=== PATIENT | male | born 1985 | race Hispanic/Latino ===

== ENCOUNTER 2016-07-06 17:05 | Emergency (ER) | payer OTHER ==
[~2016-07-06] VITALS: Ht 177.8 cm; Wt 124.7 kg
[~2016-07-06 17:05] MED LIST: ALBUTEROL0.09 MG/A1 INH; AMOXICILLIN/CLA1 TA2 PO; AMOXICILLIN875 M1 PO; AMOXIL500 MG PO; AUGMENTIN 875 M1 TAB PO; BLM PO; CYCLOBENZAPRINE10 M1 PO; FLEXERIL10 MG PO; IBUPROFEN800 MG PO; MEDROL DOSEPAK1 PAC PO; MEDROL4 M2 PO; NAPROXEN500 M2 PO; NOVAPLUS V0.09 MG/Ac INH; PREDNISONE 20MG20 MG PO; PREDNISONE20 M1 PO; PREDNISONE50 MG PO; PROAIR HFA0.09 MG/Ac INH; PROAIR HFA8.5 GM INH; PROVENTIL0.09 MG/A1 PO; TESSALON PERLE100 M1 PO; TESSALON PERLE100 MG PO; TYLENOL #31 TAB PO; ULTRAM(MONOGRAP50 MG PO; VICODIN5-300 PO; ZITHROMAX Z-PA250 M1 PO; ZITHROMAX250 M2 PO
--- NOTE | 2016-07-06 18:20 | ED INFLUENZA/URI COMPLAINT ---
History of Present Illness General Chief Complaint: General Adult Stated Complaint: SORE THROAT Source: patient Exam Limitations: no limitations Vital Signs & Intake/Output Vital Signs & Intake/Output Vital Signs Date Time Temp Pulse Resp B/P Pulse O2 O2 Flow FiO2 Ox Delivery Rate 07/06 1934 80 18 140/90 94 Room Air 07/06 1818 Room Air 07/06 1716 97.0 82 16 142/94 96 Room Air Allergies Coded Allergies: NO KNOWN ALLERGIES (03/03/16) Reconcile Medications Albuterol Sulfate (Proair Hfa) 8.5 GM HFA.AER.AD 2 PUF INH Q4-6 PRN PRN wheezing Albuterol Sulfate (Ventolin Hfa) 90 MCG HFA.AER.AD 2 PUF INH Q4-6 PRN PRN WHEEZING Azithromycin (Zithromax) 500 MG TABLET 1 TAB PO DAILY BRONCHITIS Benzonatate (Tessalon Perle) 100 MG CAPSULE 1 CAP PO TID PRN COUGH Methylprednisolone. (Medrol) 4 MG TAB.DS.PK 1 DP PO AD INFLAMMATION 6 on day 1 then reduce by one tablet daily until gone Robitussin AC (Guaifenesin-Codeine Syrup) 200 MG-20 MG/10 ML LIQUID 10 ML PO TID PRN COUGH Triage Note: PT STATES HE HAS BEEN SICK FOR A WEEK WITH A HEAD COLD AND HE HAS A SORETHROAT TODAY AND STATES HE HAS DIARRHEA NOW SINCE THIS AM. PT STATES HE HAS SOB BUT IT ISN'T HELPING HIM Triage Nurses Notes Reviewed? yes Onset: Gradual Duration: constant Timing: recent history Severity: severe Severity Numbers: 7 Prior Episodes/Possible Cause: occassional episodes HPI: Patient is a 31-year-old male with a past medical history of asthma who smokes marijuana every day who presents to emergency room with concerns of a one-week history of nonproductive cough intermittent wheezing mild sore throat and today patient had mild nausea and head congestion and generalized weakness and fatigue tactile fevers. Denies any similar sick contacts. Denies any neck pain neck stiffness headache chest pain shortness of breath arm pain jaw pain or abdominal pain (DAMIAN SPICER) Past History Travel History Traveled to [place] past 21 day No Medical History Any Pertinent Medical History? see below for history Neurological: NONE EENT: NONE Cardiovascular: NONE Respiratory: asthma Gastrointestinal: diverticulitis Hepatic: NONE Renal: NONE Musculoskeletal: NONE Psychiatric: NONE Endocrine: NONE Blood Disorders: NONE Cancer(s): NONE DIAGNOSTIC CARDIAC SONOGRAPHER/Reproductive: NONE History of MRSA: No History of VRE: No History of CDIFF: No Tetanus Vaccine: 08/19/12 Surgical History Surgical History: non-contributory, N Psychosocial History Who do you live with Family Services at Home None What is your primary language Romanian Tobacco Use: Never used ETOH Use: occasional use Illicit Drug Use: marijuana Family History Family History, If Any: MOTHER Relation not specified for: FH: diabetes in Hx Contributory? No (DAMIAN SPICER) Review of Systems Review of Systems Constitutional: Reports: see HPI. EENTM: Reports: see HPI. Respiratory: Reports: see HPI, cough. Cardiovascular: Reports: no symptoms. GI: Reports: no symptoms. Genitourinary: Reports: see HPI. Musculoskeletal: Reports: no symptoms. Skin: Reports: no symptoms. Neurological/Psychological: Reports: no symptoms. Hematologic/Endocrine: Reports: no symptoms. Immunologic/Allergic: Reports: no symptoms. All Other Systems: Reviewed and Negative (DAMIAN SPICER) Physical Exam Physical Exam General Appearance: no apparent distress, alert, comfortable Ears, Nose, Throat: moist mucous membrane, hearing grossly normal Comments: Well-developed well-nourished person in no acute distress HEENT: Normal EENT exam, extraocular motion intact, no nystagmus. Pupils equally round and reactive to light and accommodation. Nose is atraumatic. External auditory canal and Tympanic membranes clear. Pharynx normal. No swelling or edema. Neck: Supple, no lymphadenopathy, normal range of motion without pain or tenderness Back: Nontender, no CVA tenderness. Cardiovascular: Regular rate and rhythms no murmurs rubs or gallops, normal JVP Respiratory: Bilateral wheezing noted no respiratory distress Abdomen: Soft, nontender nondistended, no appreciable organomegaly. Normal bowel sounds. No ascites Extremity: No edema, no calf tenderness to palpation, normal and equal pulses. Neuro: Alert oriented x3, motor sensory normal, Skin: No appreciable rash on exposed skin, skin is warm and dry. Psych: Mood and affect is normal, memory and judgment is normal. Core Measures Severe Sepsis Present: No Septic Shock Present: No (DAMIAN SPICER) Progress Differential Diagnosis: influenza, meningitis, neutropenia, otitis, pneumonia, pharyngitis, sinusitis, DIVERTICULITIS, ASTHMA EXACERBATION, BRONCHITIS Plan of Care: Orders Procedure Date/time Status THROAT CULTURE W/QUICK STREP 07/06 1745 Active RAPID VIRAL INFLUENZA A 07/06 1720 Complete Patient was given 2 nebulizer treatments and had improvement of wheezing. Patient was walked down the hallway noted to be 94-95% room air no respiratory distress. Due to history of present illness and exam findings patient will be treated for concerns of bronchitis and asthma exacerbation. Patient was strongly advised to discontinue smoking and will follow discharge instructions and had no questions. Initial strep was negative however cultures pending (DAMIAN SPICER) Initial ED EKG: none (DAMIAN SPICER) Departure Departure Disposition: HOME OR SELF CARE Condition: Stable Clinical Impression Primary Impression: Upper respiratory infection Secondary Impressions: Asthma attack Referrals: PATIENT HAS NO PRIMARY CARE DR (PCP/Family) Additional Instructions: As discussed please discontinue smoking. Begin the prescription azithromycin for the full course. Begin THE PRESCRIPTION OF TESSALON PERLES and Robitussin with codeine for cough. Begin the prescription Medrol Dosepak tomorrow as YOU HAVE received prednisone in the emergency room today. If symptoms worsen return to emergency. If no better in 2 days follow-up with your primary care doctor. Prescriptions waiting at [facility] pharmacy Departure Forms: Customer Survey General Discharge Information Prescriptions: Current Visit Scripts Albuterol Sulfate (Ventolin Hfa) 2 PUF INH Q4-6 PRN PRN WHEEZING #1 INHAL Benzonatate (Tessalon Perle) 1 CAP PO TID PRN COUGH #21 CAP Robitussin AC (Guaifenesin-Codeine Syrup) 10 ML PO TID PRN COUGH #100 Azithromycin (Zithromax) 1 TAB PO DAILY #5 TAB Methylprednisolone. (Medrol) 1 DP PO AD #1 DP 6 on day 1 then reduce by one tablet daily until gone (DAMIAN SPICER) PA/TRAIN DIRECTOR Co-Sign Statement Statement: ED Attending supervision documentation- [] I saw and evaluated the patient. I have also reviewed all the pertinent lab results and diagnostic results. I agree with the findings and the plan of care as documented in the PA's/TRAIN DIRECTOR's documentation. X I have reviewed the ED Record and agree with the PA's/TRAIN DIRECTOR's documentation. [] Additions or exceptions (if any) to the PAs/TRAIN DIRECTOR's note and plan are summarized below: [] (MONISHA RUIZ,DEB)
[2016-07-06] MEDS ORDERED: GUAIFENESIN-COD10 ML PO (19:19)
[2016-07-06] MEDS ORDERED: ZITHROMAX500 M2 PO (19:19)
[2016-07-06] MEDS ORDERED: MEDROL4 M2 PO (19:19)
[2016-07-06] MEDS ORDERED: VENTOLIN HFA18 GM INH (19:19)
[2016-07-06] MEDS ORDERED: TESSALON PERLE100 M1 PO (19:19)
[2016-07-06 19:34] VITALS: BP 140/90
== END 2016-07-06 19:35 ==
LOC: ERH 17:05
DX: J06.9 Acute upper respiratory infection, unspecified (principal); J45.909 Unspecified asthma, uncomplicated
CPT/HCPCS: 1263; 87804; 87804-59; J3101

== ENCOUNTER 2016-10-09 09:05 | Emergency (ER) | payer OTHER ==
[~2016-10-09] VITALS: Ht 177.8 cm; Wt 127.0 kg
[~2016-10-09 09:05] MED LIST changes: +GUAIFENESIN-COD10 ML PO; +VENTOLIN HFA18 GM INH; +ZITHROMAX500 M2 PO
[2016-10-09 09:07] VITALS: BP 168/102
--- NOTE | 2016-10-09 09:16 | ED EAR COMPLAINT ---
History of Present Illness General Chief Complaint: Ear Complaints Stated Complaint: EAR PAIN Source: patient, old records Exam Limitations: no limitations Vital Signs & Intake/Output Vital Signs & Intake/Output Vital Signs Date Time Temp Pulse Resp B/P B/P Pulse O2 O2 Flow FiO2 Mean Ox Delivery Rate 10/09 0907 96.0 90 16 168/102 99 Room Air Allergies Coded Allergies: NO KNOWN ALLERGIES (03/03/16) Reconcile Medications Albuterol Sulfate (Proair Hfa) 8.5 GM HFA.AER.AD 2 PUF INH Q4-6 PRN PRN wheezing Albuterol Sulfate (Ventolin Hfa) 90 MCG HFA.AER.AD 2 PUF INH Q4-6 PRN PRN WHEEZING Azithromycin (Zithromax) 500 MG TABLET 1 TAB PO DAILY BRONCHITIS Benzonatate (Tessalon Perle) 100 MG CAPSULE 1 CAP PO TID PRN COUGH Ciprofloxacin HCl/Dexameth (Ciprodex Otic Suspension) 0.3 %-0.1 % DROPS.SUSP 4 GTT OT BID otitis externa use for 7 days Methylprednisolone. (Medrol) 4 MG TAB.DS.PK 1 DP PO AD INFLAMMATION 6 on day 1 then reduce by one tablet daily until gone Robitussin AC (Guaifenesin-Codeine Syrup) 200 MG-20 MG/10 ML LIQUID 10 ML PO TID PRN COUGH Triage Note: 31 Y/O MALE C/O "SORENESS" TO L EAR X 2 DAYS Triage Nurses Notes Reviewed? yes HPI: Patient is a 31-year-old male presents complaining of left ear discomfort. Symptoms 2 days. Itching and mild aching sensation to the left ear. Patient has been taking Tylenol with mild improvement. Associated nasal congestion and mild cough. Patient denies fevers, chills, dyspnea, discharge from his ear. Past History Travel History Traveled to [place] past 21 day No Medical History Any Pertinent Medical History? see below for history Neurological: NONE EENT: NONE Cardiovascular: NONE Respiratory: asthma Gastrointestinal: diverticulitis Hepatic: NONE Renal: NONE Musculoskeletal: NONE Psychiatric: NONE Endocrine: NONE Blood Disorders: NONE Cancer(s): NONE BLACK TOP ROLLER/Reproductive: NONE History of MRSA: No History of VRE: No History of CDIFF: No Tetanus Vaccine: 08/19/12 Surgical History Surgical History: non-contributory, N Psychosocial History Who do you live with Family Services at Home None What is your primary language Kazakh Tobacco Use: Quit >30 days ago Family History Family History, If Any: MOTHER Relation not specified for: FH: diabetes in Hx Contributory? No Review of Systems Review of Systems Constitutional: Denies: chills, fever. EENTM: Reports: see HPI, ear pain. Denies: throat pain. Respiratory: Reports: cough. Denies: short of breath. Cardiovascular: Denies: chest pain. GI: Denies: abdominal pain. Musculoskeletal: Reports: no symptoms. Skin: Reports: no symptoms. Neurological/Psychological: Reports: no symptoms. Hematologic/Endocrine: Reports: no symptoms. Immunologic/Allergic: Reports: no symptoms. Physical Exam Physical Exam General Appearance: well developed/nourished, alert, awake, obese Head: atraumatic, normal appearance Eyes: Bilateral: normal appearance. Ears: Left: swelling (mild left eac). Right: canal normal, Tympanic normal. Nose: normal inspection Mouth/Throat: normal mouth inspection, pharynx normal Neck: normal inspection, supple, full range of motion Cardiovascular/Respiratory: normal breath sounds, normal peripheral pulses, regular rate/rhythm Back: normal inspection, normal range of motion Neurologic/Psych: no motor/sensory deficits, awake, alert, oriented x 3, normal gait, normal mood/affect Skin: intact, normal color, warm/dry Progress Differential Diagnoses I considered the following diagnoses in my evaluation of the patient: Otitis media, otitis externa, cerumen impaction, mastoiditis, viral upper respiratory infection, environmental allergies Plan of Care: Patient nontoxic appearing. Appears stable for discharge. Initial ED EKG: none Departure Departure Time of Disposition: 935 Disposition: HOME OR SELF CARE Condition: Stable Clinical Impression Primary Impression: Left otitis externa Qualifiers: Otitis externa type: unspecified type Chronicity: acute Qualified Code: H60.502 - Unspecified acute noninfective otitis externa, left ear Secondary Impressions: Elevated blood pressure reading Referrals: PATIENT HAS NO PRIMARY CARE DR (PCP/Family) DEEPTI RESENDEZ MD Additional Instructions: Return to the emergency department if difficulty breathing or worsening of symptoms. Her blood pressure was elevated in the emergency department. Contact one of the [facility] primary care providers to establish a primary doctor for further evaluation. Departure Forms: Customer Survey General Discharge Information Prescriptions: Current Visit Scripts Ciprofloxacin HCl/Dexameth (Ciprodex Otic Suspension) 4 GTT OT BID #1 BOT use for 7 days
[2016-10-09] MEDS ORDERED: CIPRODEX OTIC7.5 ML OT (09:38)
== END 2016-10-09 09:41 ==
LOC: ERH 09:05
DX: H60.92 Unspecified otitis externa, left ear (principal); R03.0 Elevated blood-pressure reading, without diagnosis of hypertension

== ENCOUNTER 2017-06-17 23:01 | Emergency (ER) | payer OTHER ==
[~2017-06-17] VITALS: Ht 177.8 cm; Wt 127.0 kg
[~2017-06-17 23:01] MED LIST changes: +AUGMENTIN 500-1 EACH PO; +CHERATUSSIN AC118 M1 PO; +CIPRODEX OTIC7.5 ML OT; +PREDNISONE50 M1 PO; +PROVENTIL HFA6.7 GM INH
--- NOTE | 2017-06-18 01:22 | ED INFLUENZA/URI COMPLAINT ---
History of Present Illness General Chief Complaint: General Adult Stated Complaint: "IM SICK" Source: patient, old records Exam Limitations: no limitations Vital Signs & Intake/Output Vital Signs & Intake/Output Vital Signs Date Time Temp Pulse Resp B/P B/P Pulse O2 O2 Flow FiO2 Mean Ox Delivery Rate 06/18 0207 97.8 73 18 152/64 97 Room Air 06/18 0206 97 Room Air 06/18 0120 96 06/18 0048 98.2 99 20 157/87 97 Room Air 06/17 2319 98.1 96 18 168/101 97 Room Air ED Intake and Output 06/18 0000 06/17 1200 Intake Total Output Total Balance Patient 280 lb Weight Weight Reported by Patient Measurement Method Allergies Coded Allergies: NO KNOWN ALLERGIES (03/03/16) Reconcile Medications Albuterol Sulfate (Proventil Hfa) 90 MCG HFA.AER.AD 2 PUF INH Q4 PRN cough/ wheezing Albuterol Sulfate (Proair Hfa) 90 MCG HFA.AER.AD 2 PUF INH Q4-6 PRN PRN bronchospasm Azithromycin (Zithromax) 250 MG TABLET 1 DP PO AD bronchitis 2 the first day followed by 1 for days 2-5 Ibuprofen 600 MG TABLET 1 TAB PO Q6PRN PRN pain with food Oseltamivir Phosphate (Tamiflu) 75 MG CAPSULE 1 CAP PO BID influenza Prednisone 50 MG TABLET 1 TAB PO DAILY bronchitis Prednisone 20 MG TABLET 1 TAB PO BID bronchospasm Triage Note: PT TO ER C/C PRODUCTIVE COUGH, SORE THROAT, CONGESTION X 2 DAY Triage Nurses Notes Reviewed? yes Onset: Just prior to arrival Duration: day(s):, constant Timing: recent history Severity: moderate Prior Episodes/Possible Cause: illness exposure No Modifying Factors: none Associated Symptoms: cough, muscle aches, nasal congestion, nasal drainage, shortness of breath, wheezing HPI: 2 days prior to admission patient complains of nasal congestion productive cough chest tightness wheezing chills. He denies nausea vomiting diarrhea abdominal pain dysuria rash bleeding headache. Past History Travel History Traveled to [place] past 21 day No Medical History Any Pertinent Medical History? see below for history Neurological: NONE EENT: NONE Cardiovascular: NONE Respiratory: asthma Gastrointestinal: diverticulitis Hepatic: NONE Renal: NONE Musculoskeletal: NONE Psychiatric: NONE Endocrine: NONE Blood Disorders: NONE Cancer(s): NONE MATERIALS MANAGEMENT MANAGER/Reproductive: NONE History of MRSA: No History of VRE: No History of CDIFF: No Tetanus Vaccine: 08/19/12 Surgical History Surgical History: non-contributory, N Psychosocial History Who do you live with Family Services at Home None What is your primary language Chinese Tobacco Use: Quit <30 days ago Family History Family History, If Any: MOTHER Relation not specified for: FH: diabetes in Hx Contributory? No Review of Systems Review of Systems Constitutional: Reports: see HPI, chills, malaise. EENTM: Reports: see HPI, nasal pain, throat pain. Respiratory: Reports: see HPI, cough, short of breath, sputum production. Cardiovascular: Reports: see HPI, chest pain. GI: Reports: no symptoms. Genitourinary: Reports: no symptoms. Musculoskeletal: Reports: muscle pain. Skin: Reports: no symptoms. Neurological/Psychological: Reports: no symptoms. Hematologic/Endocrine: Reports: no symptoms. Immunologic/Allergic: Reports: no symptoms. All Other Systems: Reviewed and Negative Physical Exam Physical Exam General Appearance: well developed/nourished, alert, awake, anxious, moderate distress, obese Head: atraumatic, normal appearance Eyes: Bilateral: normal appearance, PERRL, EOMI. Ears, Nose, Throat: normal ENT inspection, moist mucous membrane Neck: normal inspection, supple, full range of motion, trachea midline, lymphadenopathy (R), lymphadenopathy (L) Respiratory: chest non-tender, decreased breath sounds, wheezing Cardiovascular: regular rate/rhythm, normal peripheral pulses, norml femoral pulses equa Peripheral Pulses: 4+ carotid (R), 4+ carotid (L) Gastrointestinal: normal bowel sounds, soft, non-tender, no organomegaly Back: normal inspection, normal range of motion Extremities: normal inspection, normal capillary refill, normal range of motion, no edema Neurologic/Psych: no motor/sensory deficits, awake, alert, oriented x 3, normal gait, normal mood/affect, 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 Skin: intact, normal color Lymphatic: adenopathy Core Measures Sepsis Present: No Sepsis Focused Exam Completed? No Progress Differential Diagnosis: influenza, pneumonia, pharyngitis, sinusitis Plan of Care: Orders Procedure Date/time Status RAPID VIRAL INFLUENZA A 06/17 2319 Complete Microbiology 06/17 2319 NASOPHARYN: Influenza Virus A & B Rapid Smear - COMP Initial ED EKG: none Departure Departure Time of Disposition: 158 Disposition: HOME OR SELF CARE Condition: Stable Clinical Impression Primary Impression: Influenza Secondary Impressions: Bronchitis, acute, with bronchospasm Referrals: Patient Has No Primary Care Dr (PCP/Family) Departure Forms: Customer Survey General Discharge Information Prescriptions: Current Visit Scripts Oseltamivir Phosphate (Tamiflu) 1 CAP PO BID #10 CAP Albuterol Sulfate (Proair Hfa) 2 PUF INH Q4-6 PRN PRN bronchospasm #1 INHAL Ref 5 Prednisone 1 TAB PO BID #10 TAB Ibuprofen 1 TAB PO Q6PRN PRN pain #50 TAB with food
[2017-06-18] MEDS ORDERED: TAMIFLU75 M1 PO (02:02)
[2017-06-18] MEDS ORDERED: PROAIR HFA8.5 GM INH (02:02)
[2017-06-18] MEDS ORDERED: PREDNISONE20 M1 PO (02:02)
[2017-06-18] MEDS ORDERED: IBUPROFEN600 M1 PO (02:03)
[2017-06-18 02:07] VITALS: BP 152/64
== END 2017-06-18 02:08 ==
LOC: ERH 23:01
DX: J11.1 Influenza due to unidentified influenza virus with other respiratory manifestations (principal); J20.9 Acute bronchitis, unspecified; Z87.891 Personal history of nicotine dependence; R07.89 Other chest pain
CPT/HCPCS: 1263; 1395; 87804; 87804-59

== ENCOUNTER 2017-07-01 17:37 | Emergency (ER) | payer OTHER ==
[~2017-07-01] VITALS: Ht 177.8 cm; Wt 127.0 kg
[~2017-07-01 17:37] MED LIST changes: +IBUPROFEN600 M1 PO; +TAMIFLU75 M1 PO
[2017-07-01 18:57] LABS: ABSOLUTE BASOPHIL COUNT 0 /CUMM (0.0-0.2); ABSOLUTE EOSINOPHIL COUNT 0.3 /CUMM (0.0-0.7); ABSOLUTE GRANULOCYTE CT 14.4 /CUMM (1.4-6.5); ABSOLUTE LYMPH COUNT 1.5 /CUMM (1.2-3.4); ABSOLUTE MONOCYTE COUNT 0.7 /CUMM (0.10-0.60); BASOPHIL % 0.1 % (0.0-2.0); EOSINOPHIL % 1.5 % (0-5); HEMATOCRIT 53.4 % (42-52); MEAN CORPUSCULAR VOLUME 84.9 FL (80.0-94.0); MEAN PLATELET VOLUME 10.1 FL (7.4-10.4); PLATELET COUNT 196 /CUMM (130-400); RBC DISTRIBUTION WIDTH 13.4 % (11.5-14.5); RED BLOOD CELL CT 6.29 /CUMM (4.70-6.10); WHITE BLOOD CELL COUNT 16.8 /CUMM (4.8-10.8)
[2017-07-01 18:59] LABS: GRANULOCYTE % 85.7 % (42.2-75.2)
--- NOTE | 2017-07-01 21:05 | ED GENERAL ADULT ---
History of Present Illness General Chief Complaint: Syncope and Near-Syncope Stated Complaint: BIBA ?SYNCOPE, ?FLU Source: patient Exam Limitations: no limitations Vital Signs & Intake/Output Vital Signs & Intake/Output Vital Signs Date Time Temp Pulse Resp B/P B/P Pulse O2 O2 Flow FiO2 Mean Ox Delivery Rate 07/01 2355 98.9 88 18 123/67 97 Room Air 07/01 2234 Room Air 07/01 2135 99.7 95 20 129/71 97 Room Air 07/01 1749 97.2 100 18 132/78 99 Room Air ED Intake and Output 07/02 0000 07/01 1200 Intake Total 1000 Output Total Balance 1000 Intake, IV 1000 Patient 280 lb Weight Weight Reported by Patient Measurement Method Allergies Coded Allergies: NO KNOWN ALLERGIES (03/03/16) Reconcile Medications Albuterol Sulfate (Proventil Hfa) 90 MCG HFA.AER.AD 2 PUF INH Q4 PRN cough/ wheezing Albuterol Sulfate (Proair Hfa) 90 MCG HFA.AER.AD 2 PUF INH Q4-6 PRN PRN bronchospasm Azithromycin (Zithromax) 250 MG TABLET 1 DP PO AD bronchitis 2 the first day followed by 1 for days 2-5 Hyoscyamine (Levsin) 0.125 MG TABLET 1 TAB PO Q4 PRN ABDOMINAL SPASMS Ibuprofen 600 MG TABLET 1 TAB PO Q6PRN PRN pain with food Metoclopramide HCl (Reglan) 10 MG TABLET 1 TAB PO 4 TIMES/DAY PRN NAUSEA 30 minutes before meals and bedtime Oseltamivir Phosphate (Tamiflu) 75 MG CAPSULE 1 CAP PO BID influenza Prednisone 50 MG TABLET 1 TAB PO DAILY bronchitis Prednisone 20 MG TABLET 1 TAB PO BID bronchospasm Triage Note: 32 YO MALE TO TRIAGE BY AMBULANCE C/O +DIARRHEA SINCE THIS AM. STATES +SYNCOPLE EPISODE WHILE AT HOME PRIOR TO EMS ARRIVAL. PT STATES +CRAMPING IN ABD. STATES EVERYONE IN THE HOUSE HAS HAD A STOMACH BUG. Triage Nurses Notes Reviewed? yes Onset: Gradual Duration: day(s): (1) Timing: no prior history Injury Environment: home Severity: moderate No Modifying Factors: none HPI: Patient is a 32-year-old male presenting to the emergency department with chief complaint of nausea and diarrhea with diffuse abdominal discomfort, cramping in nature and has been going on since waking up this morning. He reports 6-8 very loose watery bowel movements since waking up, denies blood in the stool. Patient also reports waves of nausea without vomiting. He was at dinner last night, had shrimp, the other person that shrimp has also been experiencing nausea and vomiting and diarrhea today. No recent antibiotics. Denies chest pain or palpitations. Patient does report a potential syncopal episode that was witnessed. No head injury. Patient reports hot and cold episodes throughout the day. Positive body aches. (Abbi Watkins) Past History Travel History Traveled to [place] past 21 day No Medical History Any Pertinent Medical History? see below for history Neurological: NONE EENT: NONE Cardiovascular: NONE Respiratory: asthma Gastrointestinal: diverticulitis Hepatic: NONE Renal: NONE Musculoskeletal: NONE Psychiatric: NONE Endocrine: NONE Blood Disorders: NONE Cancer(s): NONE PATIENT ACCOUNTS MANAGER/Reproductive: NONE History of MRSA: No History of VRE: No History of CDIFF: No Tetanus Vaccine: 08/19/12 Surgical History Surgical History: non-contributory, N Psychosocial History Who do you live with Family Services at Home None What is your primary language Faroese Tobacco Use: Never used Family History Family History, If Any: MOTHER Relation not specified for: FH: diabetes in Hx Contributory? No (Abbi Watkins) Review of Systems Review of Systems Constitutional: Reports: see HPI, chills, fever, malaise, weakness. Comments Review of systems: See HPI, All other systems negative. Constitutional, no weight loss HEENT: No visual changes no sore throat no congestion Cardiovascular: No chest pain ,palpitation , orthopnea or ankle swelling Skin, no jaundice no rashes Respiratory: No dyspnea cough sputum or hemoptysis GI: No vomiting : No dysuria No hematuria Muscle skeletal: no back pain, no neck pain, Neurologic: No numbness no confusion, no headaches Psych: No stress anxiety or depression,. Heme/endocrine: No bruising no bleeding no polyuria or polydipsia Immunology: No splenectomy or history of AIDS (Abbi Watkins) Physical Exam Physical Exam General Appearance: well developed/nourished, no apparent distress, alert, awake , comfortable, obese Comments: Well-developed well-nourished person in no acute distress HEENT: Normal EENT exam, extraocular motion intact, no nystagmus. Pupils equally round and reactive to light and accommodation. Nose is atraumatic. External auditory canal and Tympanic membranes clear. Pharynx normal. No swelling or edema. Moist oral mucosa. Clear secretions that difficulty. Neck: Supple, no lymphadenopathy, no C-spine tenderness. Back: Nontender, no CVA tenderness. Cardiovascular: Regular rate and rhythms no murmurs rubs or gallops, normal JVP Respiratory: Chest nontender. No respiratory distress.breath sounds clear to auscultation bilaterally Abdomen: Soft,nondistended, no appreciable organomegaly. Normal bowel sounds. No ascites, diffusely tender, no rebound or guarding. Extremity: No edema Neuro: Alert oriented x3, motor sensory normal, cranial nerves II through XII grossly intact. Cerebellar testing is unremarkable. Skin: No appreciable rash on exposed skin, skin is warm and dry. Psych: Mood and affect is normal, memory and judgment is normal. Core Measures ACS in differential dx? No CVA/TIA Diagnosis: No Sepsis Present: No Sepsis Focused Exam Completed? No (Janet GREEN,Abbi) Progress Differential Diagnoses I considered the following diagnoses in my evaluation of the patient: Dehydration, electrolyte abnormality, vasovagal episode, orthostatic hypotension , food poisoning, C. difficile, viral gastritis, gastroenteritis, diverticulitis , nonspecific colitis Plan of Care: Orders Procedure Date/time Status RAPID VIRAL INFLUENZA A 07/01 2154 Complete Add-on Test (ER Only) 07/01 2128 Active MISTAKE 07/01 2128 Active LIPASE 07/01 175 Complete AMYLASE 07/01 175 Complete EKG 07/01 175 Active COMPREHENSIVE METABOLIC PANEL 07/01 175 Complete CBC WITHOUT DIFFERENTIAL 07/01 175 Complete Laboratory Tests 07/01/17 1752: Anion Gap 18 H, Estimated GFR > 60, BUN/Creatinine Ratio 12.3, Glucose 169 H, Calcium 10.7 H, Total Bilirubin 0.9, AST 62 H, ALT 128 H, Alkaline Phosphatase 58, Total Protein 8.9 H, Albumin 5.4 H, Globulin 3.5, Albumin/ Globulin Ratio 1.5, Amylase 71, Lipase 198, CBC w Diff MAN DIFF ORDERED, RBC 6.29 H, MCV 84.9, MCH 28.0, RDW 13.4, MPV 10.1, Gran % 85.7 H, Lymphocytes % 8.8 L, Monocytes % 3.9, Eosinophils % 1.5, Basophils % 0.1, Absolute Granulocytes 14.4 H, Segmented Neutrophils 82 H, Absolute Lymphocytes 1.5, Lymphocytes 11 L, Monocytes 4, Absolute Monocytes 0.7 H, Eosinophils 3, Absolute Eosinophils 0.3, Absolute Basophils 0, Platelet Estimate VERIFIED BY SMEAR, Normocytic RBCs VERIFIED, Normochromic RBCs VERIFIED, PUBS MCHC 33.0, Fld Total RBCs Counted 100 Microbiology 07/01 2327 NASOPHARYN: Influenza Virus A & B Rapid Smear - COMP 07/01 2127 STOOL: Clostridium difficile Toxin A & B - CAN Cancelled: Cancelled via OE: Error Diagnostic Imaging: Viewed by Me: CT Scan. Discussed w/RAD: CT Scan. Radiology Impression: PATIENT: DOROTHY OROZCO PRESENT AGE: 32 PATIENT ACCOUNT NO: [id number] : 85 LOCATION: [facility] ORDERING PHYSICIAN: Abbi GREEN SERVICE DATE: 07/01/17 EXAM TYPE: CAT - CT ABD & PELVIS W IV CONTRAST EXAMINATION: CT ABDOMEN AND PELVIS WITH CONTRAST CLINICAL INFORMATION: Abdominal pain. Diarrhea. COMPARISON: CT scan abdomen pelvis 11/29/2014 TECHNIQUE: Multidetector volumetric imaging was performed of the abdomen and pelvis following IV administration of 95 mL of Optiray 320 intravenous contrast. Sagittal and coronal reformatted images were obtained on the technologist's workstation. DLP: 1023.87 mGy-cm FINDINGS: LUNG BASES: The visualized lung bases are unremarkable. LIVER, GALLBLADDER, AND BILIARY TREE: Diffuse low attenuation of liver parenchyma due to fatty change. No focal liver lesion. No hepatic bile duct dilatation. Level of liver measures 20 cm superior inferior. The gallbladder is unremarkable with no evidence of radiopaque gallstones, gallbladder wall thickening, or obvious pericholecystic inflammatory changes. PANCREAS: Unremarkable. SPLEEN: Unremarkable. ADRENAL GLANDS: Unremarkable. KIDNEYS AND URETERS: The kidneys are normal in size, shape , and attenuation. No hydronephrosis, hydroureter, or calculi seen. No perinephric stranding. Small cortical cyst of the midpole right kidney. BLADDER: Unremarkable. GASTROINTESTINAL TRACT: The small and large bowel are unremarkable. The appendix is unremarkable. ABDOMINAL WALL: No significant hernia is appreciated. LYMPH NODES: Normal. VASCULAR: Unremarkable. PELVIC VISCERA: Unremarkable. OSSEOUS STRUCTURES: Partial transitional L5 vertebrae. The left L5 transverse process articulates with the sacrum. IMPRESSION: 1. No acute abnormality. No acute change of the bowel. No diverticula or diverticulitis. 2. Diffuse fatty change of liver. Mild hepatomegaly. DICTATED BY : Kirk Hargrove MD DATE/TIME DICTATED:07/01/172302 RETAIL WIRELESS SALES REPRESENTATIVE:DANIEL DATE/TIME TRANSCRIBED:07/01/172302 CONFIDENTIAL, DO NOT COPY WITHOUT APPROPRIATE AUTHORIZATION. <Electronically signed in Other Vendor System> SIGNED BY: Kirk Hargrove MD 07/01/17 2129 Initial ED EKG: NSR (82 BPM) Comments: 07/01/2017 11:46:26 PM patient tolerating kati dillon without nausea or vomiting. Patient informed of all lab work results and imaging results. Likely viral or food induced. Patient feeling much improved after IV hydration, Toradol. Patient will be sent home, treated symptomatically. Given prescription to drop off stool sample at the lab. (Abbi Watkins) Departure Departure Time of Disposition: 2339 Disposition: HOME OR SELF CARE Condition: Stable Clinical Impression Primary Impression: Diarrhea Qualifiers: Diarrhea type: unspecified type Qualified Code: R19.7 - Diarrhea, unspecified Secondary Impressions: Abdominal pain Qualifiers: Abdominal location: unspecified location Qualified Code: R10.9 - Unspecified abdominal pain Referrals: Patient Has No Primary Care Dr (PCP/Family) Additional Instructions: Follow-up with your primary care physician in the next 5-7 days. Increase fluids. Take Levsin as prescribed to help with abdominal spasms. Take REGLAN help with any nausea. Clear liquid diet for the next 24 hours. Slowly build diet as tolerated. Return for worsening symptoms or concerns. Departure Forms: Customer Survey General Discharge Information Prescriptions: Current Visit Scripts Metoclopramide HCl (Reglan) 1 TAB PO 4 TIMES/DAY PRN NAUSEA #20 TAB 30 minutes before meals and bedtime Hyoscyamine (Levsin) 1 TAB PO Q4 PRN ABDOMINAL SPASMS #40 TAB (Abbi Watkins) PA/EDUCATION FACULTY MEMBER Co-Sign Statement Statement: ED Attending supervision documentation- [] I saw and evaluated the patient. I have also reviewed all the pertinent lab results and diagnostic results. I agree with the findings and the plan of care as documented in the PA's/EDUCATION FACULTY MEMBER's documentation. [X] I have reviewed the ED Record and agree with the PA's/EDUCATION FACULTY MEMBER's documentation. [] Additions or exceptions (if any) to the PAs/EDUCATION FACULTY MEMBER's note and plan are summarized below: [] (Daniella RUIZ,Jena) Critical Care Note Critical Care Note Critical Care Time: non-applicable (Janet GREEN,Abbi)
--- NOTE | 2017-07-01 23:15 | CT SCAN REPORT ---
EXAMINATION: CT ABDOMEN AND PELVIS WITH CONTRAST CLINICAL INFORMATION: Abdominal pain. Diarrhea. COMPARISON: CT scan abdomen pelvis 11/29/2014 TECHNIQUE: Multidetector volumetric imaging was performed of the abdomen and pelvis following IV administration of 95 mL of Optiray 320 intravenous contrast. Sagittal and coronal reformatted images were obtained on the technologist's workstation. DLP: 1023.87 mGy-cm FINDINGS: LUNG BASES: The visualized lung bases are unremarkable. LIVER, GALLBLADDER, AND BILIARY TREE: Diffuse low attenuation of liver parenchyma due to fatty change. No focal liver lesion. No hepatic bile duct dilatation. Level of liver measures 20 cm superior inferior. The gallbladder is unremarkable with no evidence of radiopaque gallstones, gallbladder wall thickening, or obvious pericholecystic inflammatory changes. PANCREAS: Unremarkable. SPLEEN: Unremarkable. ADRENAL GLANDS: Unremarkable. KIDNEYS AND URETERS: The kidneys are normal in size, shape, and attenuation. No hydronephrosis, hydroureter, or calculi seen. No perinephric stranding. Small cortical cyst of the midpole right kidney. BLADDER: Unremarkable. GASTROINTESTINAL TRACT: The small and large bowel are unremarkable. The appendix is unremarkable. ABDOMINAL WALL: No significant hernia is appreciated. LYMPH NODES: Normal. VASCULAR: Unremarkable. PELVIC VISCERA: Unremarkable. OSSEOUS STRUCTURES: Partial transitional L5 vertebrae. The left L5 transverse process articulates with the sacrum. IMPRESSION: 1. No acute abnormality. No acute change of the bowel. No diverticula or diverticulitis. 2. Diffuse fatty change of liver. Mild hepatomegaly.
[2017-07-01] MEDS ORDERED: REGLAN10 M1 PO (23:42)
[2017-07-01] MEDS ORDERED: LEVSIN0.125 M1 PO (23:42)
[2017-07-01 23:55] VITALS: BP 123/67
== END 2017-07-01 23:55 ==
LOC: ERH 17:37
PROVIDERS: Emergency Medicine
DX: R19.7 Diarrhea, unspecified (principal); R10.9 Unspecified abdominal pain; R11.0 Nausea
CPT/HCPCS: 74177; 87045; 87804; 87804-59; 93005; 93010; 96374; 96375; J1885; J2765